=== PATIENT | male | born 1960 | race Native Hawaiian/Other Pacific Islander ===

== ENCOUNTER 2018-11-18 23:21 | Inpatient (IN) | payer MEDICARE ==
[2018-11-19] VITALS: BMI 32.3
[2018-11-19 00:49] LABS: BASO # 0.03 K/mm3 (0.0-2.0); BASO % 0.4 % (0.0-3.0); EOS # 0.1 (0.0-0.7); EOS % 1.2 % (1.5-5.0); HEMOGLOBIN 13.1 g/dL (14.0-18.0); LYMPH # 1.4 (1.2-3.4); LYMPH % 16.5 % (22.0-35.0); MEAN CORPUSCULAR HGB CONC 32.6 g/dl (31.0-37.0); MEAN PLATELET VOLUME 11.5 fl (7.0-11.0); MONO # 1.1 (0.1-0.6); MONO % 12.5 % (1.0-6.0); RBC 4.37 10^6/uL (3.5-6.1); RED CELL DISTRIBUTION WIDTH 12.6 % (11.5-14.5); WHITE BLOOD COUNT 8.4 10^3/uL (4.5-11.0)
[2018-11-19 00:51] LABS: ALB/GLOB RATIO 1.1 (1.1-1.8); ALBUMIN 3.9 g/dL (3.0-4.8); CALCIUM 9.2 mg/dL (8.4-10.5); URIC ACID 7.2 mg/dL (3.5-8.5)
--- NOTE | 2018-11-19 01:12 | ED PDOC ---
Arrival/HPI - General Chief Complaint: Lower Extremity Problem/Injury Time Seen by Provider: 11/19/18 00:05 Historian: Patient - History of Present Illness Narrative History of Present Illness (Text): 11/19/18 01:12 57 year old male, with past medical history of a pacemaker, presents to emergency department complaining of pain, swelling, and redness to the dorsal lateral right foot since Wednesday. Patient reports coming back from the [facility] today. Patient denies any trauma, injury, fever, chills, chest pain, shortness of breath, calf pain or swelling, numbness in extremities, decreased range of motion, any other joint pain. PMD out of state Time/Duration: Other (Wednesday) Symptom Onset: Gradual Symptom Course: Unchanged Activities at Onset: Light Context: Home Past Medical History - Provider Review Nursing Documentation Reviewed: Yes - Travel History If Yes, travel location?: [facility] - Cardiac Hx Pacemaker: Yes - Pulmonary Hx Respiratory Disorders: No - Neurological Hx Neurological Disorder: No - HEENT Hx HEENT Disorder: No - Renal Hx Renal Disorder: No - Endocrine/Metabolic Hx Endocrine Disorders: No - Hematological/Oncological Hx Blood Disorders: No - Integumentary Hx Dermatological Disorder: No - Musculoskeletal/Rheumatological Hx Musculoskeletal Disorders: No - Gastrointestinal Hx Gastrointestinal Disorders: No - Genitourinary/Gynecological Hx Genitourinary Disorders: No - Psychiatric Hx Psychophysiologic Disorder: No Hx Substance Use: No - Anesthesia Hx Anesthesia: Yes Hx Anesthesia Reactions: No Hx Malignant Hyperthermia: No Family/Social History - Physician Review Nursing Documentation Reviewed: Yes Family/Social History: Unknown Family HX Smoking Status: Never Smoked Hx Alcohol Use: No Hx Substance Use: No Allergies/Home Meds Allergies/Adverse Reactions: Allergies No Known Allergies Allergy (Verified 11/19/18 00:06) Home Medications: Home Meds Medication Instructions Recorded Confirmed Ascorbate Calcium/Bioflavonoid 1 tab PO DAILY 11/19/18 11/19/18 [Liliana-C 500 mg Tablet] Atorvastatin [Lipitor] 20 mg PO DAILY 11/19/18 11/19/18 Carvedilol [Coreg] 1.5 tab PO BID 11/19/18 11/19/18 Dextromethorphan HBr/Quinidine 1 tab PO BID 11/19/18 11/19/18 [Nuedexta 20-10 mg Capsule] Review of Systems - Physician Review All systems were reviewed & negative as marked: Yes - Review of Systems Constitutional: absent: Fevers Respiratory: absent: SOB Cardiovascular: absent: Chest Pain Gastrointestinal: absent: Abdominal Pain, Diarrhea, Nausea, Vomiting Genitourinary Male: absent: Frequency, Hematuria, Urinary Output Changes Musculoskeletal: Myalgias (pain, swelling, and redness to right foot ). absent: Back Pain, Neck Pain Skin: absent: Rash Neurological: absent: Headache, Dizziness Physical Exam Vital Signs Reviewed: Yes Vital Signs Temp Pulse Resp BP Pulse Ox 11/19/18 00:18 97.7 F 77 20 142/86 100 Temperature: Afebrile Blood Pressure: Normal Pulse: Regular Respiratory Rate: Normal Appearance: Positive for: Well-Appearing, Non-Toxic, Comfortable Pain Distress: Mild Mental Status: Positive for: Alert and Oriented X 3 - Systems Exam Head: Present: Atraumatic, Normocephalic Pupils: Present: PERRL Extroacular Muscles: Present: EOMI Conjunctiva: Present: Normal Mouth: Present: Moist Mucous Membranes Neck: Present: Normal Range of Motion Respiratory/Chest: Present: Clear to Auscultation, Good Air Exchange. No: Respiratory Distress, Accessory Muscle Use Cardiovascular: Present: Regular Rate and Rhythm, Normal S1, S2. No: Murmurs Abdomen: No: Tenderness, Distention, Peritoneal Signs Back: Present: Normal Inspection Upper Extremity: Present: Normal Inspection. No: Cyanosis, Edema Lower Extremity: Present: Tenderness (dorsal lateral right foot), Swelling (dorsal lateral right foot ), Erythema (dorsal lateral right foot ), Temperature Abnormalties (warm to touch to dorsal lateral right foot ). No: Edema Neurological: Present: GCS=15, CN II-XII Intact, Speech Normal Skin: Present: Warm, Dry, Normal Color. No: Rashes Psychiatric: Present: Alert, Oriented x 3, Normal Insight, Normal Concentration Medical Decision Making ED Course and Treatment: 11/19/18 01:27 Impression: 57 year old male presents to emergency department complaining of pain, swelling, and redness to dorsal lateral right foot since Wednesday. Plan: -- EKG -- Labs -- Chest X-ray -- X-ray right foot -- US Lower Extremities Right -- Reassess and disposition Prior Visits: Notes and results from previous visits were reviewed. Progress Notes: EKG : electronic ventricular paced rhythm at 70 bpm. CXR : NAD, as read by PA XR R foot : no fracture, no dislocation, as read by PA. Labs reviewed : normal wbc, +renal insufficiency, unknown if acute or chronic. On re-evaluation, patient remains AAOx3, in no acute distress. Diagnostic results d/w the patient in great detail. Diagnosis of cellulitis d/w the patient and his . Vancomycin 1 g IV ordered. Based on history, exam and diagnostic results, plan will be for inpatient admission, as per Dr. Albright. Case d/w Dr. Albright, request for admission with consult to Dr. Jenkins for ID, renal US in the AM and to start .45 NS fluids 80cc/hr. Patient states he fully agrees with and understands further plan of care and disposition. I have given the patient opportunity to ask any additional questions. - Lab Interpretations Lab Results: Total Bilirubin 0.9 mg/dL (0.2-1.3) 11/19/18 00:25 AST 16 U/L (17-59) L 11/19/18 00:25 ALT 12 U/L (7-56) 11/19/18 00:25 Alkaline Phosphatase 51 U/L (38-126) 11/19/18 00:25 Total Protein 7.4 g/dL (5.8-8.3) 11/19/18 00:25 Albumin 3.9 g/dL (3.0-4.8) 11/19/18 00:25 Globulin 3.5 gm/dL 11/19/18 00:25 Albumin/Globulin Ratio 1.1 (1.1-1.8) 11/19/18 00:25 - RAD Interpretation Radiology Orders: 11/19/18 00:21 CHEST ONE VIEW [RAD] Stat FOOT RIGHT 3 VIEWS ROUTINE [RAD] Stat 11/19/18 00:22 DUPLEX LOWER EXTRM VEIN RIGHT [US] Stat - Medication Orders Current Medication Orders: Discontinued Medications Ketorolac Tromethamine (Toradol) 15 mg IVP STAT STA Stop: 11/19/18 00:23 - PA / HVAC DESIGN MECHANICAL ENGINEER / Resident Statement MD/DO has reviewed & agrees with the documentation as recorded. - Scribe Statement The provider has reviewed the documentation as recorded by the Scribe Jeff Vargas All medical record entries made by the Scribe were at my direction and personally dictated by me. I have reviewed the chart and agree that the record accurately reflects my personal performance of the history, physical exam, medical decision making, and the department course for this patient. I have also personally directed, reviewed, and agree with the discharge instructions and disposition. Disposition/Present on Arrival - Present on Arrival Any Indicators Present on Arrival: No History of DVT/PE: No History of Uncontrolled Diabetes: No Urinary Catheter: No History of Decub. Ulcer: No History Surgical Site Infection Following: None - Disposition Have Diagnosis and Disposition been Completed?: Yes Diagnosis: Cellulitis of right foot, Renal insufficiency Disposition: HOSPITALIZED Disposition Time: 02:00 Patient Plan: Admission Patient Problems: Current Active Problems Problem Status Onset Cellulitis of right foot Acute Renal insufficiency Acute Condition: STABLE
[2018-11-19] MEDS ORDERED: Sodium Chloride 0.9% 500 ML IV STA (02:04)
[2018-11-19] MEDS ORDERED: Vancomycin 1gm in NS 250ml 1 GM/250 ML BAG IVPB STA (02:05)
--- NOTE | 2018-11-19 06:20 | CP.PCM.PN ---
Subjective - Date & Time of Evaluation Date of Evaluation: 11/19/18 Time of Evaluation: 06:18 - Subjective Subjective: residential tech asked to cosign order for diet. Patient seen. As per primary nurse of patient, BP is 168/104. He has no complaints. Denies head ache, dizziness, weakness , paraesthesia. Medical record was reviewed. This 57 year old male was admitted with pain, swelling , redness of right foot, renal insufficiency. Has PMH of PPM, HTN?, renal insufficiency, obesity. Objective - Vital Signs/Intake and Output Vital Signs (last 24 hours): Temp Pulse Resp BP Pulse Ox 97.7 F 72 16 168/104 H 100 11/19/18 00:18 11/19/18 05:14 11/19/18 04:41 11/19/18 05:14 11/19/18 04:19 - Medications Medications: Current Medications Sodium Chloride (Sodium Chloride 0.45%) 500 mls @ 80 mls/hr IV .Q6H15M DEBORAH - Labs Labs: 11/19/18 00:25 11/19/18 00:25 - Constitutional Appears: Well, No Acute Distress - Head Exam Head Exam: ATRAUMATIC, NORMAL INSPECTION, NORMOCEPHALIC - Eye Exam Eye Exam: Normal appearance - ENT Exam ENT Exam: Normal External Ear Exam - Neck Exam Neck Exam: Normal Inspection - Respiratory Exam Respiratory Exam: NORMAL BREATHING PATTERN - Cardiovascular Exam Cardiovascular Exam: absent: JVD - GI/Abdominal Exam GI & Abdominal Exam: absent: Distended - Rectal Exam Rectal Exam: Deferred - Exam Additional comments: Deferred. - Extremities Exam Extremities Exam: Normal Inspection - Back Exam Back Exam: NORMAL INSPECTION - Neurological Exam Neurological Exam: Alert, Awake - Psychiatric Exam Psychiatric exam: Normal Affect, Normal Mood - Skin Skin Exam: Normal Color Assessment and Plan - Assessment and Plan (Free Text) Assessment: Hypertensive Urgency HTN. History PPM History DE Obesity Right foot cellulitis Plan: Coreg 12.5 mg PO x 1. Continue present management.
[2018-11-19] MEDS: Sodium Chloride 0.45% 500 ML IV SCH (07:57)
--- NOTE | 2018-11-19 09:00 | CARD ---
APPROVED REPORT Date of service: 11/19/2018 EKG Measurement Heart [id number] <Conclusion> Electronic ventricular pacemaker
--- NOTE | 2018-11-19 10:33 | US ---
Date of service: 11/19/2018 PROCEDURE: Ultrasound of the Kidneys HISTORY: elevated bun/creat COMPARISON: None available. TECHNIQUE: Sonogram of the kidneys. FINDINGS: RIGHT KIDNEY: Measures: 6.2 x 10.0 cm. Normal in size, contour and echogenicity. No stone, solid mass lesion or hydronephrosis visualized. Central, parapelvic cyst 1.2 x 1.5 cm LEFT KIDNEY: Measures: 5.4 x 10.4 cm. Normal in size, contour and echogenicity. No stone, solid mass lesion or hydronephrosis visualized. Lower pole cyst 10 x 11 mm. More centrally situated parapelvic cyst 8 x 15 mm. OTHER FINDINGS: None. IMPRESSION: No significant or acute findings to account for/ related to the clinical presentation. Additional benign and/or incidental findings described above.
--- NOTE | 2018-11-19 11:10 | RAD ---
Date of service: 11/19/2018 PROCEDURE: Right Foot Radiographs. HISTORY: Pain. No history of recent/ related trauma provided. Swelling. COMPARISON: None. FINDINGS: BONES: Plantar and Achilles Tendon insertion calcaneal spurs. No fractures identified. JOINTS: Normal. SOFT TISSUES: Soft tissue swelling plantar aspect of the hindfoot. OTHER FINDINGS: None. IMPRESSION: Soft tissue swelling without acute articular or osseous abnormality.
--- NOTE | 2018-11-19 12:02 | RAD ---
Date of service: 11/19/2018 PROCEDURE: CHEST RADIOGRAPH, 1 VIEW HISTORY: R leg swelling COMPARISON: None available. FINDINGS: LUNGS: Clear. PLEURA: No pneumothorax or pleural fluid seen. CARDIOVASCULAR: No aortic atherosclerotic calcification present. No radiographic findings to suggest acute or significant cardiovascular disease. Position/ configuration of pacemaker OSSEOUS STRUCTURES: No significant abnormalities. VISUALIZED UPPER ABDOMEN: Normal. OTHER FINDINGS: None. IMPRESSION: No active disease.
[2018-11-19] MEDS ORDERED: Vancomycin 1 g Inj IVPB SCH (14:00)
[2018-11-19] MEDS: Vancomycin 500mg in NS 500 MG/100 ML BAG IVPB SCH (15:33)
[2018-11-19] MEDS: NUEDEXTA PO SCH (17:37)
--- NOTE | 2018-11-19 20:07 | CP.PCM.CON ---
History of Present Illness - History of Present Illness History of Present Illness: Infectious Disease Consultation: November 19, 2018 57 yo [place] male with pain, swelling, and erythema to the right dorsal lateral foot for the past 5 days. Patient states he just returned from the [facility]. Patient states that he has a pacemaker. SHAHIDA vs CKD? Creatinine is 2.3. Unclear if the patient has DM. Would check Hgb A1c on this patient. PMHx: CAD PSHx: Pacemaker placement. Allergies: NKDA Social Hx: Patient denies tobacco, EtOH, or illicit drug use Active Medications Acetaminophen (Tylenol 325mg Tab) 650 mg PO Q6H PRN PRN Reason: pain or temp Apixaban (Eliquis) 5 mg PO BID [facility]; Protocol Last Admin: 11/19/18 17:37 Dose: 5 mg Atorvastatin Calcium (Lipitor) 20 mg PO DIN [facility] Last Admin: 11/19/18 17:38 Dose: 20 mg Clonidine HCl (Catapres) 0.1 mg PO Q4H PRN PRN Reason: hypertension Home Med (Home Med) 1 unit PO BID [facility] Last Admin: 11/19/18 17:37 Dose: 1 unit Sodium Chloride (Sodium Chloride 0.45%) 500 mls @ 80 mls/hr IV .Q6H15M [facility] Last Admin: 11/19/18 07:57 Dose: 80 mls/hr Vancomycin HCl (Vancomycin 500mg In Ns) 500 mg in 100 mls @ 200 mls/hr IVPB Q12H [facility] Last Admin: 11/19/18 15:33 Dose: 200 mls/hr Ceftriaxone Sodium (Rocephin 1 Gram Ivpb) 1 gm in 100 mls @ 100 mls/hr IVPB DAILY [facility]; Protocol Metoprolol Tartrate (Lopressor) 50 mg PO BRKDIN [facility] Last Admin: 11/19/18 17:37 Dose: 50 mg Ondansetron HCl (Zofran Inj) 4 mg IVP Q6H PRN PRN Reason: Nausea/Vomiting Family Hx: none given ROS: no fevers, chills, nausea, vomiting, diarrhea, headaches, dizziness, chest pain, abdominal pain, melena, hematuria, hematemesis, hematochezia, depression, anxiety Past Patient History - Past Social History Smoking Status: Never Smoked - CARDIAC Hx Pacemaker: Yes - PULMONARY Hx Respiratory Disorders: No - NEUROLOGICAL Hx Neurological Disorder: No - HEENT Hx HEENT Problems: No - RENAL Hx Chronic Kidney Disease: No - ENDOCRINE/METABOLIC Hx Endocrine Disorders: No - HEMATOLOGICAL/ONCOLOGICAL Hx Blood Disorders: No - INTEGUMENTARY Hx Dermatological Problems: No - MUSCULOSKELETAL/RHEUMATOLOGICAL Hx Musculoskeletal Disorders: No - GASTROINTESTINAL Hx Gastrointestinal Disorders: No - GENITOURINARY/GYNECOLOGICAL Hx Genitourinary Disorders: No - PSYCHIATRIC Hx Psychophysiologic Disorder: No Hx Substance Use: No - SURGICAL HISTORY Hx Surgeries: Yes - ANESTHESIA Hx Anesthesia: Yes Hx Anesthesia Reactions: No Hx Malignant Hyperthermia: No Meds Allergies/Adverse Reactions: Allergies Allergy/AdvReac Type Severity Reaction Status Date / Time No Known Allergies Allergy Verified 11/19/18 00:06 - Medications Medications: Current Medications Acetaminophen (Tylenol 325mg Tab) 650 mg PO Q6H PRN PRN Reason: pain or temp Apixaban (Eliquis) 5 mg PO BID [facility]; Protocol Last Admin: 11/19/18 17:37 Dose: 5 mg Atorvastatin Calcium (Lipitor) 20 mg PO DIN [facility] Last Admin: 11/19/18 17:38 Dose: 20 mg Clonidine HCl (Catapres) 0.1 mg PO Q4H PRN PRN Reason: hypertension Home Med (Home Med) 1 unit PO BID [facility] Last Admin: 11/19/18 17:37 Dose: 1 unit Sodium Chloride (Sodium Chloride 0.45%) 500 mls @ 80 mls/hr IV .Q6H15M [facility] Last Admin: 11/19/18 07:57 Dose: 80 mls/hr Vancomycin HCl (Vancomycin 500mg In Ns) 500 mg in 100 mls @ 200 mls/hr IVPB Q12H [facility] Last Admin: 11/19/18 15:33 Dose: 200 mls/hr Metoprolol Tartrate (Lopressor) 50 mg PO BRKDIN [facility] Last Admin: 11/19/18 17:37 Dose: 50 mg Ondansetron HCl (Zofran Inj) 4 mg IVP Q6H PRN PRN Reason: Nausea/Vomiting Physical Exam - Constitutional Appears: Non-toxic, No Acute Distress, Chronically Ill - Head Exam Head Exam: ATRAUMATIC, NORMOCEPHALIC - Eye Exam Eye Exam: EOMI, PERRL Pupil Exam: NORMAL ACCOMODATION, PERRL - ENT Exam ENT Exam: Mucous Membranes Moist, Normal External Ear Exam, TM's Normal Bilaterally - Neck Exam Neck exam: Positive for: Full Rom, Normal Inspection - Respiratory Exam Respiratory Exam: Clear to Auscultation Bilateral, NORMAL BREATHING PATTERN. absent: Rales, Rhonchi, Wheezes - Cardiovascular Exam Cardiovascular Exam: REGULAR RHYTHM, RRR, +S1, +S2 - GI/Abdominal Exam GI & Abdominal Exam: Normal Bowel Sounds, Soft. absent: Distended, Tenderness - Extremities Exam Extremities exam: Positive for: full ROM, joint swelling, pedal edema Additional comments: right foot swelling and erythema with warmth. - Neurological Exam Neurological exam: Alert, CN II-XII Intact, Oriented x3 - Psychiatric Exam Psychiatric exam: Normal Affect, Normal Mood - Skin Skin Exam: Intact, Normal Color Results - Vital Signs Recent Vital Signs: Last Vital Signs Temp 97.8 F 11/19/18 14:00 Pulse 73 11/19/18 14:00 Resp 18 11/19/18 14:00 BP 136/84 11/19/18 17:37 Pulse Ox 98 11/19/18 14:00 - Labs Result Diagrams: 11/19/18 00:25 11/19/18 00:25 Labs: Laboratory Results - last 24 hr 11/19/18 11/19/18 00:25 00:25 WBC 8.4 RBC 4.37 Hgb 13.1 L Hct 40.2 L MCV 92.0 MCH 30.0 MCHC 32.6 RDW 12.6 Plt Count 141 MPV 11.5 H Neut % (Auto) 69.4 H Lymph % (Auto) 16.5 L [place] % (Auto) 12.5 H Eos % (Auto) 1.2 L Baso % (Auto) 0.4 Lymph # (Auto) 1.4 [place] # (Auto) 1.1 H Eos # (Auto) 0.1 Baso # (Auto) 0.03 Absolute Neuts (auto) 5.81 Sodium 141 Potassium 4.0 Chloride 106 Carbon Dioxide 28 Anion Gap 12 BUN 36 H Creatinine 2.3 H Est GFR ( Amer) 36 Est GFR (Non-Af Amer) 29 Random Glucose 146 H Uric Acid 7.2 Calcium 9.2 Magnesium 2.1 Total Bilirubin 0.9 AST 16 L ALT 12 Alkaline Phosphatase 51 Total Protein 7.4 Albumin 3.9 Globulin 3.5 Albumin/Globulin Ratio 1.1 Assessment & Plan - Assessment and Plan (Free Text) Assessment: 57 yo [place] male with cellulitis of the right foot. The patient with unclear medical history other than CAD and pacemaker placement. The patient is noted to have elevated creatinine. Supportive care. Started on IV Vancomycin and Rocephin. Check ESR and Hgb A1c. Thank you for allowing me to participate in the care of the patient, we will follow with you.
[2018-11-19 21:34] LABS: URINE BILIRUBIN NEGATIVE (NEGATIVE); URINE BLOOD TRACE-INTACT (NEGATIVE); URINE GLUCOSE (UA) 100 mg/dL (NEGATIVE); URINE LEUKOCYTE ESTERASE NEGATIVE Leu/uL (NEGATIVE); URINE PROTEIN 30 mg/dL (<30 mg/dL); URINE UROBILINOGEN 0.2 E.U./dL (<1 E.U./dL)
[2018-11-19 21:35] LABS: URINE APPEARANCE CLEAR (CLEAR)
[2018-11-19 21:36] LABS: URINE COLOR YELLOW (YELLOW)
[2018-11-19 21:44] LABS: URINE RBC 0 - 2 /hpf (0-2)
--- NOTE | 2018-11-19 23:22 | HP ---
DATE OF EXAM: 11/19/2018 HISTORY OF PRESENT ILLNESS: This 57-year-old male who was examined at his bedside in the presence of his nurse, Kamini Tran, registered nurse on the morning of 11/19/2018. This is a 57-year-old [place] gentleman who took an airplane flight from [facility] yesterday to visit his daughter in [place], [place]. According to the patient, he had severe pain, swelling and erythema in his right foot for which he presented to the [facility] ER for further evaluation earlier this morning. There, he was noted to have evidence of clinical cellulitis and admitted for further evaluation of the above. On further questioning of this patient, the pain began on afternoon prior to his airplane flight and he did notice swelling and pain in his foot, but it came on his airplane trip nonetheless. In the emergency room, he underwent foot x-ray, venous Doppler of the lower extremity and they both reportedly negative for any evidence of fracture or DVT. 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 OUTPATIENT MEDICATIONS: Included Nuedexta 20-10 mg 1 tablet p.o. b.i.d., Coreg b.i.d., dose unknown; Lipitor 20 mg p.o. daily; multivitamin; and fish oil. ALLERGIES: THE PATIENT HAS NO KNOWN ALLERGIES TO MEDICATIONS. SOCIAL HISTORY: He is a current nondrinker, nonsmoker, and non IV drug misuser. He is retired and a former worker at the [employer]. FAMILY HISTORY: Noncontributory. REVIEW OF SYSTEMS: CONSTITUTIONAL: He denies fever or chills. HEAD: No headache or seizures. EYES: No change in visual acuity. EARS: No hearing loss. THROAT: No swallowing difficulty. NECK: No stiffness. CARDIAC: He has chronic hypertension. PULMONARY: No cough. No hemoptysis. GASTROINTESTINAL: No hematemesis. No melena. GENITOURINARY: Chronic renal failure stage III secondary to chronic hypertension and type 2 diabetes mellitus. VASCULAR: No claudication. PSYCHOLOGICAL: Denied depression. NEUROLOGICAL: Old stroke with left hemiparesis. SKIN: No ulcerations. PHYSICAL EXAMINATION: VITAL SIGNS: Temperature was 97.1, respirations 16, pulse 72, blood pressure 147/96 with a pulse ox of 99% on room air. HEENT: Head; normocephalic and atraumatic. Eyes: No icterus. Ears: Clear. Throat: Noninjected. NECK: Supple. HEART: Regular S1 and S2. LUNGS: Clear. ABDOMEN: Obese. No rebound. No guarding. No tenderness. EXTREMITIES: No edema. Right foot had some mild swelling with warmth, erythema, no obvious ulcerations and no Homans' sign. VASCULAR: The left leg warm to touch. LABORATORY DATA: White count 8400, hemoglobin 13.1, hematocrit 40.2, and platelets 141,000. Sodium 141, K 4, chloride 106, bicarb 28, BUN 36, creatinine 2.3, and random blood sugar 146. Uric acid 7.2 and calcium 9.2. Magnesium 2.1. Bilirubin 0.9, AST 16, ALT 12, and alk phos 51. EKG was reviewed, it showed an electronic ventricular pacemaker rhythm. Chest x-ray was reviewed, it showed clear lungs, no pneumothorax, no pleural effusion, no infiltrate, and no congestive heart failure. Right foot x-ray was reviewed, it showed calcaneal spurs, no fractures were identified. There was soft tissue swelling, but no bony abnormalities. Venous Doppler reportedly showed no DVT. Renal ultrasound was reviewed, it showed no hydronephrosis, bilateral renal cysts and no solid masses. IMPRESSION: This is a 57-year-old male with right lower extremity foot and ankle cellulitis with comorbidities of chronic hypertension, obesity, hyperlipidemia, old stroke, and type 2 diabetes mellitus, diet-controlled. PLAN: At present is to continue clonidine 0.1 mg p.o. every 4 hours p.r.n. accelerated hypertension if systolic blood pressure should be greater than 160 or diastolic blood pressure greater than 100, Lipitor 20 mg p.o. at dinnertime, Lopressor 50 mg p.o. b.i.d. which will be held if pulse should be less than 50 or blood pressure systolic less than 100. The patient will continue on 0.45 saline at 80 mL/hour. He is ordered to have Tylenol 650 p.o. every 6 hours p.r.n. pain or temperature greater than 101, Zofran 4 mg IV every 6 hours p.r.n. nausea and vomiting. The patient was given vancomycin 1 g in the emergency room and I will order a vancomycin 500 mg IV every 12 hours for his cellulitis. He is on a heart-healthy diet and will have blood sugars checked a.c. meals and at bedtime. Consultation with Dr. Alex Jenkins from Infectious Disease has been requested and a basic metabolic panel will be repeated in the a.m. Greater than 75 minutes was spent in the care management, review of labs, orders, x-rays and discussion of this patient with himself, nursing and his family. All questions were answered. Pretty Albright MD MTDD
[2018-11-20] MEDS: Sodium Chloride 0.45% 500 ML IV SCH ×2 (02:00→20:33)
[2018-11-20] MEDS: Vancomycin 500mg in NS 500 MG/100 ML BAG IVPB SCH ×2 (02:00→14:24)
[2018-11-20 07:09] LABS: CALCIUM 9.1 mg/dL (8.4-10.5)
[2018-11-20] MEDS: Insulin Reg-LOW-Coverage SC SCH ×3 (08:38→22:38)
[2018-11-20] MEDS: cefTRIAXone 1 gm 1 GM/100 ML BAG IVPB SCH (10:31)
[2018-11-20] MEDS: NUEDEXTA PO SCH ×2 (10:31→17:57)
--- NOTE | 2018-11-20 11:49 | PN ---
DATE: 11/20/2018 SUBJECTIVE: This 57-year-old male was examined at his bedside in the presence of his nurse, Kalli, registered nurse. The patient is presently receiving IV Rocephin and IV vancomycin for a right foot cellulitis. I did review his right foot x-rays that show no evidence of fracture or foreign body and the patient's right lower extremity ultrasound was reportedly negative for DVT. PHYSICAL EXAMINATION: VITAL SIGNS: At present, he remains in sinus rhythm with a temperature of 98.4, respirations 20, pulse 70 and blood pressure 158/90 with a pulse ox of 97% room air. HEENT: Head: Normocephalic, atraumatic. Eyes: No icterus. Ears: Clear. Throat: Noninjected. NECK: Supple. HEART: Regular S1, S2. LUNGS: Clear. ABDOMEN: Obese, nontender. No rebound, no guarding. No tenderness. EXTREMITIES: Slowly improving right foot cellulitis. No ulcerations. Palpable pulse. NEUROLOGIC: Intact. PSYCHOLOGICAL: Alert. LABORATORY DATA: White count 8400, hemoglobin 13.1, hematocrit 40.2, platelets 141,000. Sodium 141, K 4.1, chloride 109, bicarb 26, BUN 33, creatinine 2, random blood sugar 93, calcium 9.1. Urinalysis showed 30 mg/dL of protein, positive glucose and 0 to 2 RBCs, no white blood cells. 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 PLAN: At present are to continue clonidine 0.1 mg p.o. every 4 hours p.r.n. accelerated hypertension if his systolic blood pressure should be greater than 160 or diastolic blood pressure greater than 100. He will continue home medications including Eliquis 5 mg p.o. b.i.d., Nuedexta 1 tablet p.o. b.i.d., regular R insulin coverage a.c. meals and h.s. low-dose protocol, Lipitor 20 mg p.o. h.s., Lopressor 50 mg p.o. b.i.d., Rocephin 1 g IV every 24 hours, vancomycin 500 mg IV every 12 hours, 0.45 saline at 80 mL per hour, Tylenol 650 p.o. every 6 hours p.r.n. pain or temperature greater than 101 and Zofran 4 mg IV every 6 hours p.r.n. nausea and vomiting. He will be scheduled for a basic metabolic panel and hemoglobin A1c. He is ordered to have a sed rate, ESR. He is on a heart-healthy diabetic renal diet and based on clinical progress, additional diagnostic workup and testing will be entertained. Greater than 35 minutes was spent in the care management, review of labs, x-rays, orders and discussion of this patient with his registered nurse. All questions were answered. Pretty Albright MD
--- NOTE | 2018-11-20 12:17 | US ---
PROCEDURE: Right lower extremity venous US HISTORY: Leg pain and swelling. Evaluate for DVT. PHYSICIAN(S): Vitor Rangel M.D. TECHNIQUE: Duplex sonography and color-flow Doppler with graded compression were used to evaluate the deep venous system of the right lower extremity. FINDINGS: The visualized deep venous system of the right lower extremity is sonographically normal and compressible. Normal waveforms and augmentation are seen. There is no sonographic evidence for deep venous thrombosis in the visualized segments of the right lower extremity. IMPRESSION: 1. No sonographic evidence for deep venous thrombosis in the visualized segments of the right lower extremity.
--- NOTE | 2018-11-20 17:38 | CP.PCM.PN ---
Subjective - Date & Time of Evaluation Date of Evaluation: 11/20/18 Time of Evaluation: 15:00 - Subjective Subjective: Infectious Disease Follow Up: November 20, 2018 57 yo [place] male with pain, swelling, and erythema to the right dorsal lateral foot for the past 5 days. Patient states he just returned from the [facility]. Patient states that he has a pacemaker. SHAHIDA vs CKD? Creatinine is 2.3. Unclear if the patient has DM. Would check Hgb A1c on this patient. Hgb A1c is 5.6. ESR was 67. X-ray of the foot did not show fracture. The patient did roll his right ankle about 3-4 days ago. Objective - Vital Signs/Intake and Output Vital Signs (last 24 hours): Temp Pulse Resp BP Pulse Ox 98.1 F 70 20 130/79 99 11/20/18 14:00 11/20/18 14:00 11/20/18 14:00 11/20/18 14:00 11/20/18 14:00 Intake and Output: 11/20/18 11/20/18 06:59 18:59 Intake Total 1920 Balance 1920 - Medications Medications: Current Medications Acetaminophen (Tylenol 325mg Tab) 650 mg PO Q6H PRN PRN Reason: pain or temp Apixaban (Eliquis) 5 mg PO BID [facility]; Protocol Last Admin: 11/20/18 10:31 Dose: 5 mg Atorvastatin Calcium (Lipitor) 20 mg PO DIN [facility] Last Admin: 11/19/18 17:38 Dose: 20 mg Clonidine HCl (Catapres) 0.1 mg PO Q4H PRN PRN Reason: hypertension Home Med (Home Med) 1 unit PO BID [facility] Last Admin: 11/20/18 10:31 Dose: 1 unit Sodium Chloride (Sodium Chloride 0.45%) 500 mls @ 80 mls/hr IV .Q6H15M [facility] Last Admin: 11/20/18 02:00 Dose: 80 mls/hr Vancomycin HCl (Vancomycin 500mg In Ns) 500 mg in 100 mls @ 200 mls/hr IVPB Q12H [facility] Last Admin: 11/20/18 14:24 Dose: 200 mls/hr Ceftriaxone Sodium (Rocephin 1 Gram Ivpb) 1 gm in 100 mls @ 100 mls/hr IVPB DAILY [facility]; Protocol Last Admin: 11/20/18 10:31 Dose: 100 mls/hr Insulin Human Regular (Humulin R Low) 0 units SC ACHS [facility]; Protocol Last Admin: 11/20/18 08:38 Dose: Not Given Metoprolol Tartrate (Lopressor) 50 mg PO BRKDIN [facility] Last Admin: 11/20/18 08:30 Dose: 50 mg Ondansetron HCl (Zofran Inj) 4 mg IVP Q6H PRN PRN Reason: Nausea/Vomiting - Labs Labs: 11/19/18 00:25 11/20/18 06:00 - Constitutional Appears: Non-toxic, No Acute Distress, Chronically Ill - Head Exam Head Exam: ATRAUMATIC, NORMOCEPHALIC - Eye Exam Eye Exam: EOMI, PERRL Pupil Exam: NORMAL ACCOMODATION, PERRL - ENT Exam ENT Exam: Mucous Membranes Moist, Normal External Ear Exam, TM's Normal Bilaterally - Neck Exam Neck Exam: Full ROM, Normal Inspection - Respiratory Exam Respiratory Exam: Clear to Ausculation Bilateral, NORMAL BREATHING PATTERN. absent: Rales, Rhonchi, Wheezes - Cardiovascular Exam Cardiovascular Exam: REGULAR RHYTHM, RRR, +S1, +S2 - GI/Abdominal Exam GI & Abdominal Exam: Soft, Normal Bowel Sounds. absent: Distended, Tenderness - Extremities Exam Extremities Exam: Full ROM, Joint Swelling, Pedal Edema Additional comments: right foot swelling. No erythema or extra warmth today. - Neurological Exam Neurological Exam: Alert, Awake, CN II-XII Intact, Oriented x3 - Psychiatric Exam Psychiatric exam: Normal Affect, Normal Mood - Skin Skin Exam: Intact, Normal Color Assessment and Plan - Assessment and Plan (Free Text) Assessment: 57 yo [place] male with cellulitis of the right foot. The patient with unclear medical history other than CAD and pacemaker placement. The patient is noted to have elevated creatinine. Supportive care. Started on IV Vancomycin and Rocephin. Check ESR and Hgb A1c. ESR of 67. Hgb A1c of 5.6. The patient had recently rolled his ankle about 3-4 days prior to admission. Appears to be doing well. No leukocytosis. No evidence for osteomyelitis at this point. Can consider use of oral Augmentin 875mg BID for 7 days more when ready for discharge. Thank you for allowing me to participate in the care of the patient, we will follow with you.
[2018-11-21] MEDS: Vancomycin 500mg in NS 500 MG/100 ML BAG IVPB SCH ×2 (01:14→13:25)
[2018-11-21 07:45] LABS: CALCIUM 9.1 mg/dL (8.4-10.5)
[2018-11-21] MEDS: Insulin Reg-LOW-Coverage SC SCH ×2 (08:11→12:36)
[2018-11-21 08:14] VITALS: BP 158/90; PULSE 76
[2018-11-21 08:15] VITALS: RESP 18; TEMP 97.9; O2SAT 99
[2018-11-21] MEDS: Sodium Chloride 0.45% 500 ML IV SCH ×2 (09:52→09:57)
[2018-11-21] MEDS: NUEDEXTA PO SCH (09:58)
[2018-11-21] MEDS: cefTRIAXone 1 gm 1 GM/100 ML BAG IVPB SCH (10:01)
--- NOTE | 2018-11-21 17:35 | CP.PCM.PN ---
Subjective - Date & Time of Evaluation Date of Evaluation: 11/21/18 Time of Evaluation: 15:00 - Subjective Subjective: Infectious Disease Follow Up: November 21, 2018 57 yo [place] male with pain, swelling, and erythema to the right dorsal lateral foot for the past 5 days. Patient states he just returned from the [facility]. Patient states that he has a pacemaker. SHAHIDA vs CKD? Creatinine is 2.3. Unclear if the patient has DM. Would check Hgb A1c on this patient. Hgb A1c is 5.6. ESR was 67. X-ray of the foot did not show fracture. The patient did roll his right ankle about 3-4 days prior to admission. No new com plaints and appears comfortable right now. Objective - Vital Signs/Intake and Output Vital Signs (last 24 hours): Temp Pulse Resp BP Pulse Ox 97.9 F 76 18 158/90 H 99 11/21/18 06:00 11/21/18 08:10 11/21/18 06:00 11/21/18 08:10 11/21/18 06:00 Intake and Output: 11/21/18 11/21/18 06:59 18:59 Intake Total 420 Output Total 800 700 Balance -800 -280 - Labs Labs: 11/19/18 00:25 11/21/18 06:30 - Constitutional Appears: Non-toxic, No Acute Distress, Chronically Ill - Head Exam Head Exam: ATRAUMATIC, NORMOCEPHALIC - Eye Exam Eye Exam: EOMI, PERRL Pupil Exam: NORMAL ACCOMODATION, PERRL - ENT Exam ENT Exam: Mucous Membranes Moist, Normal External Ear Exam, TM's Normal Bilaterally - Neck Exam Neck Exam: Full ROM, Normal Inspection - Respiratory Exam Respiratory Exam: Clear to Ausculation Bilateral, NORMAL BREATHING PATTERN. absent: Rales, Rhonchi, Wheezes - Cardiovascular Exam Cardiovascular Exam: REGULAR RHYTHM, RRR, +S1, +S2 - GI/Abdominal Exam GI & Abdominal Exam: Soft, Normal Bowel Sounds. absent: Distended, Tenderness - Extremities Exam Extremities Exam: Full ROM, Joint Swelling, Pedal Edema Additional comments: mild right foot swelling. No erythema or extra warmth today. - Neurological Exam Neurological Exam: Alert, Awake, CN II-XII Intact, Oriented x3 - Psychiatric Exam Psychiatric exam: Normal Affect, Normal Mood - Skin Skin Exam: Intact, Normal Color Assessment and Plan - Assessment and Plan (Free Text) Assessment: 57 yo [place] male with cellulitis of the right foot. The patient with unclear medical history other than CAD and pacemaker placement. The patient is noted to have elevated creatinine. Supportive care. Started on IV Vancomycin and Rocephin. Check ESR and Hgb A1c. ESR of 67. Hgb A1c of 5.6. The patient had recently rolled his ankle about 3-4 days prior to admission. Appears to be doing well. No leukocytosis. No evidence for osteomyelitis at this point. Can consider use of oral Augmentin 875mg BID for 7 days more when ready for discharge. Thank you for allowing me to participate in the care of the patient, we will follow with you.
--- NOTE | 2018-11-22 22:46 | DS ---
HISTORY OF PRESENT ILLNESS: This 57-year-old male was examined at his bedside on the afternoon of 11/21/2018 in the presence of his , daughter and nurse, Naomi Collins, registered nurse. The patient is being discharged to the care of his family. DISCHARGE DIAGNOSES: Include right foot cellulitis improved, chronic hypertension, hyperlipidemia, old stroke with left hemipareses and history of diet-controlled diabetes mellitus, and chronic renal failure stage III. DISPOSITION: Home. DISCHARGE MEDICATIONS: Nuedexta 1 tablet b.i.d. 20-10 mg, Coreg one and a half tablet p.o. b.i.d., Lipitor 20 mg p.o. daily, Eliquis 5 mg p.o. b.i.d., and Augmentin 875/125 mg 1 tablet p.o. b.i.d. #14 no refill. HOSPITAL COURSE: This 57-year-old male who was coming to visit his daughter in [place], [place] from a return trip from the [facility] was admitted for right foot cellulitis in the absence of trauma or injury. The patient had undergone diagnostic workup including extremity ultrasound that showed no DVT and a right foot x-ray that showed no evidence of foreign body or fracture. The patient was seen in consultation by Dr. Alex Jenkins from Infectious Disease, who concurred with treatment of IV vancomycin and IV Rocephin and then felt the patient was safe for discharge on oral Augmentin. Because of his elevated BUN and creatinine, the patient had a renal ultrasound completed which showed medical renal disease and bilateral benign renal cysts. At the time of his discharge, temperature was 97.9, respirations 18, pulse 76, and blood pressure 158/90 with a pulse ox of 99% room air. White count 8400, hemoglobin 13.1, hematocrit 40.2, and platelets 141,000. Sodium 141, K of 4.3, chloride 108, bicarb 26, BUN 30, creatinine 2.0, random blood sugar 97 with a calcium of 9.1. The patient was discharged to home to the care of his family. All medications were reviewed. Discharge instructions were reviewed with his nurse at the bedside and the patient was advised for any change in signs and symptoms to present directly to the closest emergency room. Greater than 35 minutes was spent in the discharge management of this patient including review of labs, x-rays, blood work and medications. This was reviewed with , daughter and nursing present. All questions were answered. Pretty Albright MD
== END 2018-11-21 16:24 | disposition home or self-care (01) | DRG 603 ==
LOC: ED 23:21 → ERH 11-19 02:07 → 5RNO 11-19 04:25
PROVIDERS: ADMIT Internal Medicine; ATTEND Internal Medicine
DX: L03.115 Cellulitis of right lower limb (principal); I69.354 Hemiplegia and hemiparesis following cerebral infarction affecting left non-dominant side; N17.9 Acute kidney failure, unspecified; I25.10 Atherosclerotic heart disease of native coronary artery without angina pectoris; I16.0 Hypertensive urgency; I12.9 Hypertensive chronic kidney disease with stage 1 through stage 4 chronic kidney disease, or unspecified chronic kidney disease; N18.9 Chronic kidney disease, unspecified; E11.22 Type 2 diabetes mellitus with diabetic chronic kidney disease; E66.9 Obesity, unspecified; E78.5 Hyperlipidemia, unspecified; I25.2 Old myocardial infarction; Z95.0 Presence of cardiac pacemaker; Z68.32 Body mass index [BMI] 32.0-32.9, adult